=== PATIENT | female | born 1970 | race Asian ===

== ENCOUNTER 2023-01-01 14:38 | Outpatient (CLI) | payer BC | END 2023-01-01 14:39 | disposition home or self-care (01) | LOC: CSHULT 14:38 | PROVIDERS: ATTEND Urology | DX: R35.0 Frequency of micturition (principal); Q61.01 Congenital single renal cyst; N28.1 Cyst of kidney, acquired | CPT/HCPCS: 76770 ==

== ENCOUNTER 2024-03-14 12:28 | Outpatient (CLI) | payer BC | END 2024-03-14 12:29 | disposition home or self-care (01) | LOC: CSHULT 12:28 | PROVIDERS: ATTEND Urology | DX: N28.1 Cyst of kidney, acquired (principal); R35.0 Frequency of micturition | CPT/HCPCS: 76770 ==